=== PATIENT | female | born 1990 ===

== ENCOUNTER 2018-01-24 10:22 | Inpatient (IN) | payer OTHER ==
[~2018-01-24] VITALS: Ht 160 cm; Wt 65.3 kg
[2018-01-24] MEDS ORDERED: FERRALET 90 TA1 EACH PO (11:29)
[2018-01-24] MEDS ORDERED: PRENATAL TABLE1 EAC2 PO (11:29)
[2018-01-24 11:31] LABS: ABSOLUTE BASOPHIL COUNT 0 /CUMM (0.0-0.2); ABSOLUTE EOSINOPHIL COUNT 0 /CUMM (0.0-0.7); ABSOLUTE GRANULOCYTE CT 5.8 /CUMM (1.4-6.5); ABSOLUTE LYMPH COUNT 1.5 /CUMM (1.2-3.4); ABSOLUTE MONOCYTE COUNT 0.5 /CUMM (0.10-0.60); BASOPHIL % 0.2 % (0.0-2.0); EOSINOPHIL % 0.6 % (0-5); GRANULOCYTE % 74.5 % (42.2-75.2); MEAN CORPUSCULAR HGB 31.4 PG (27.0-31.0); MEAN CORPUSCULAR HGB CONC 33.5 G/DL (33.0-37.0); MEAN CORPUSCULAR VOLUME 93.8 FL (81.0-99.0); MEAN PLATELET VOLUME 7.9 FL (7.4-10.4); PLATELET COUNT 233 /CUMM (130-400); RBC DISTRIBUTION WIDTH 13.7 % (11.5-14.5); RED BLOOD CELL CT 3.63 /CUMM (4.20-5.40); WHITE BLOOD CELL COUNT 7.8 /CUMM (4.8-10.8)
--- NOTE | 2018-01-24 14:03 | History & Physical ---
General Information and HPI MD Statement: I have seen and personally examined DIMPLE PLAZA and documented this H&P. Source of Information: patient, old records Exam Limitations: no limitations History of Present Illness: The patient is a 27 year old at 40 weeks and 5 days gestation who presented with a chief complaint of LOF 230a, clr. GBS neg.Rare mild ctx, no vb. +FM Allergies/Medications Allergies: Coded Allergies: No Known Allergies (06/13/17) Home Med list Iron Carb,Gl/FA/B12/C/Docusate (Ferralet 90 Tablet) 90 MG-1 MG-12 MCG-120 MG-50 MG TABLET 1 TAB PO DAILY ANEMIA (Reported) Vit No.130/Iron/FA ( Tablet) 27 MG IRON-800 MCG TABLET 1 TAB PO DAILY (Reported) Compliance With Home Meds: GOOD Past History forgesmith History : 1 Para: 0 Last Menstrual Period: 04/16/17 Estimated Delivery Date: 01/19/18 Past forgesmith History: non-contributory Medical History Neurological: NONE (advil prn pre preg), migraine EENT: NONE Cardiovascular: NONE Respiratory: NONE Gastrointestinal: NONE Hepatic: NONE Renal: NONE Musculoskeletal: NONE Psychiatric: NONE Endocrine: NONE Blood Disorders: NONE Cancer(s): NONE SERVICE SUPPORT REPRESENTATIVE/Reproductive: NONE Surgical History Pertinent Surgical History: none Past Family/Social History Psychosocial History Smoking Status: Never Smoked Employment History Employment Employed (RN) Profession/Employer RN Exam & Diagnostic Data Last 24 Hrs of Vital Signs/I&O afeb, v/ss Intake & Output / 1600 04/08 0800 04/08 0000 Intake Total Output Total Balance Patient 144 lb Weight Obstetric Exam Wgt Gained During : 11 lb Pelvimetry: adequate Dilation (cm): 3 Effacement (%): 80 Station: -2 Membranes: SROM Fluid: clear Fundal Height (cm): 39 Multiple Gestation? No Contractions: irreg q 8 - 12 Infant #1 - FHR Baseline: 130 Category: 1 Estimated Weight: 3500 Presentation: vtx Patient for Induction? No Dewey Score Dewey Score Response Value Cervix Position: posterior 0 Cervix Consistency: soft 2 Cervix Effacement: >80% 3 Cervix Dilation: 3-4 cm 2 Cervix Station: -2 1 Total 8 Physical Exam: nad cta rrr abd soft nt gravid ext nt no ed Labs Blood Type & Rh: A pos Antibody Screen: neg Hct/Hgb & Platelets #1: 11.2/ 35.8, 274 Hct/Hgb & Platelets #2: 10.2/ 33.1, 249 Rubella: imm VDRL #1: neg VDRL #2: neg HbsAg: neg HIV #1: neg HIV #2 neg 1 Hr P 3 Hr P, 89, 85, 93 Group B Strep: neg Initial Ultrasound: 06/30/17 siup 9+3 Anatomy Ultrasound: 10/26/17 18+4, nl raj, plac fundal Ultrasound for EFW: 12/21/17 34+4 40% Genetic Testing: hgb aa, cf neg, declined 1st trim and 2nd trim genetics Last 24 Hrs of Labs/Ariel: Laboratory Tests 01/24/18 1100: CBC w Diff NO MAN DIFF REQ, RBC 3.63 L, MCV 93.8, MCH 31.4 H, MCHC 33.5, RDW 13.7, MPV 7.9, Gran % 74.5, Lymphocytes % 18.8 L, Monocytes % 5.9, Eosinophils % 0.6, Basophils % 0.2, Absolute Granulocytes 5.8, Absolute Lymphocytes 1.5, Absolute Monocytes 0.5, Absolute Eosinophils 0, Absolute Basophils 0, Urinalysis LIGHT H, Urine Color STRAW, Urine Clarity HAZY H, Urine pH 7.0, Ur Specific L[place]y 1.010, Urine Protein NEG, Urine Ketones NEG, Urine Nitrite NEG, Urine Bilirubin NEG, Urine Urobilinogen 0.2, Ur Leukocyte Esterase NEG, Ur Microscopic SEDIMENT EXAMINED, Urine RBC 1-3, Urine WBC RARE, Ur Epithelial Cells MOD H, Urine Bacteria FEW H, Urine Hemoglobin MOD H, Urine Glucose NEG Assessment/Plan Assessment/Plan: 27yo P0 40+wks SROM 230a, GBS neg, afeb, no e/o chorio, and maternal status reassuring -Admit -monitoring -IVF -pitocin augmentation -ANSVD As Ranked By This Provider Problem List: 1. Intrauterine Core Measures Venous Thromboembolism VTE Risk Factors / No Mechanical VTE Prophylaxis d/t Early Ambulation No VTE Pharm Prophylaxis d/t LowRisk-No Interven Req'd
[2018-01-24 20:14] VITALS: BP 117/74
--- NOTE | 2018-01-24 21:32 | PN- OBGYN ---
Surgical Brief Attending Note Brief Attending Note: pt comfortable s/p epidural afeb, v/ss fht 130s moderate variability +acc no dec toco q 2-3 sve 3-4 / 90 / -2 pit@14mu A/P 27yo P0 40+wks prom 19+hrs, gbs neg, afeb, on pit, and maternal status reassuring -cont current mgmt -ansvd
--- NOTE | 2018-01-25 02:50 | Labor & Delivery Summary ---
Delivery Summary Vaginal Delivery: Vaginal: spontaneous Episiotomy/Lacerations: Type: small 2nd degree Repair: 3-0 vicryl Anesthesia: epidural Placenta: Placenta: spontanteous, normal, 3 vessel Anesthesia: block Cord PH Value: 7.39 Apgars - 1 Min: 9 Apgars - 5 Min: 9 Additional Comments: pt fd / +4 and pushed once with epidural. controlled of live male. head del from kaleb. body del w/o difficulty and baby to mom's chest. cord clamped and cut. spont cry. 3vc plac del spont intact. fundus contracted. 2nd deg lac repaired usual fashion 3-0 loreto. excellent hemostasis. ebl 300cc. pt srinath well.
[2018-01-26 08:01] LABS: ABSOLUTE BASOPHIL COUNT 0 /CUMM (0.0-0.2); ABSOLUTE EOSINOPHIL COUNT 0.2 /CUMM (0.0-0.7); ABSOLUTE GRANULOCYTE CT 6.5 /CUMM (1.4-6.5); ABSOLUTE LYMPH COUNT 1.8 /CUMM (1.2-3.4); ABSOLUTE MONOCYTE COUNT 0.4 /CUMM (0.10-0.60); BASOPHIL % 0.2 % (0.0-2.0); EOSINOPHIL % 1.9 % (0-5); GRANULOCYTE % 73.1 % (42.2-75.2); HEMATOCRIT 29.9 % (37-47); MEAN CORPUSCULAR HGB 31.9 PG (27.0-31.0); MEAN CORPUSCULAR HGB CONC 34.3 G/DL (33.0-37.0); MEAN PLATELET VOLUME 8.3 FL (7.4-10.4); PLATELET COUNT 212 /CUMM (130-400); RBC DISTRIBUTION WIDTH 13.9 % (11.5-14.5); RED BLOOD CELL CT 3.21 /CUMM (4.20-5.40); WHITE BLOOD CELL COUNT 8.9 /CUMM (4.8-10.8)
--- NOTE | 2018-01-26 10:34 | PN- OBGYN ---
Surgical Brief Attending Note Brief Attending Note: PPD#1 pt is ambulating, no complaints, tolerate diet, void without difficulties. PE: VSS CV RRR Lungs CTA B/L Abdomen: soft, nontender, uterus firm, fundus below umbilicus. lochia mild Ext: DCT (-) A/P: 27yo, s/p , PPD#1 1. encourage ambulation and 2. RT PP care
[2018-01-27] MEDS ORDERED: IBUPROFEN800 M1 PO (10:22)
--- NOTE | 2018-01-27 10:23 | PN- OBGYN ---
Surgical Brief Attending Note Brief Attending Note: PPD #2 vss afebrile lochia serosanganous fundus firm no edema plan d/c home
== END 2018-01-27 11:59 | DRG 775 ==
LOC: GNO 10:22
PROVIDERS: Obstetrics & Gynecology
PROC: 10E0XZZ Delivery of Products of Conception, External Approach (ICD-10-PCS; principal; 2018-01-25)
PROC: 0KQM0ZZ Repair Perineum Muscle, Open Approach (ICD-10-PCS; principal; 2018-01-25)
DX: O70.1 Second degree perineal laceration during delivery (principal); Z37.0 Single live birth; Z3A.40 40 weeks gestation of pregnancy
CPT/HCPCS: GNOP; GNOS; 36415; 81001; 84112; 87086; J7120